=== PATIENT | female | born 1985 | race Caucasian/White ===

== ENCOUNTER 2022-09-27 14:56 | Inpatient (IN) ==
[2022-09-27] MEDS ORDERED: TRANEXAMIC ACID 1,000 MG in SODIUM CHLORIDE 0.9% 100 ML IV PRN (15:10)
[2022-09-27] MEDS ORDERED: miSOPROStoL 200 MCG TABLET RECTAL PRN (15:10)
[2022-09-27] MEDS ORDERED: LIDOCAINE 1% 50 ML VIAL MISC INJ ONE (15:10)
[2022-09-27] MEDS ORDERED: miSOPROStoL 200 MCG TABLET VAG PRN (15:10)
[2022-09-27] MEDS ORDERED: ONDANSETRON 4 MG/2 ML VIAL IV PRN (15:10)
[2022-09-27] MEDS ORDERED: MEPERIDINE 50 MG/1 ML VIAL IV PRN (15:10)
[2022-09-27] MEDS ORDERED: OXYTOCIN/LR 20 UNIT/1,000 ML BAG IV ONE (15:10)
[2022-09-27] MEDS ORDERED: TERBUTALINE 1 MG/1 ML VIAL SUBCUT PRN (15:10)
[2022-09-27] MEDS ORDERED: CARBOPROST TROMETHAMINE 250 MCG/ML AMP IM PRN ×2 (15:10)
[2022-09-27] MEDS ORDERED: METHYLERGONOVINE 0.2 MG/1 ML AMP IM PRN (15:10)
[2022-09-27] MEDS ORDERED: LACTATED RINGERS 1,000 ML IV SCH (15:30)
[2022-09-27 15:32] LABS: Basophils % 0.3 % (0.0-0.8); Eosinophils # 0.1 10*3/uL (0.0-0.87); Eosinophils % 0.7 % (0.00-10.9); Hematocrit 37.6 VOL% (35.7-47.0); Hemoglobin 12.4 GM/DL (12.0-16.0); Immature Granulocytes % 0.4 %; Immature Granulocytes Absolute 0.04 #; Lymphocytes # 1.6 10*3/uL (1.4-4.0); Lymphocytes % 16.5 % (21.3-54.2); Mean Corpuscular Volume 85.5 FL (87-102); Mean Platelet Volume 10.8 FL (9.6-12.0); Monocytes # 0.6 10*3/uL (0.11-0.8); Monocytes % 6.3 % (1.7-12.7); Neutrophils % 75.8 % (38.7-73.9); Platelet Count 234 T/CUMM (130-400); White Blood Count 9.39 T/CUMM (4-12)
[2022-09-27 15:51] LABS: Albumin 3.2 G/DL (3.4-5.0); Bilirubin,Total 0.5 MG/DL (0.20-1.00); Calcium 9.2 MG/DL (8.5-10.1); Total Protein 6.8 G/DL (6.4-8.2)
[2022-09-28] MEDS ORDERED: BUTORPHANOL 2 MG/ML VIAL IV PRN (01:52)
[2022-09-28] MEDS ORDERED: OXYTOCIN/LR 20 UNIT/1,000 ML BAG IV ONE ×2 (02:23→03:05)
[2022-09-28] MEDS ORDERED: OXYTOCIN/LR 20 UNIT/1,000 ML BAG IV SCH ×2 (02:30→04:00)
[2022-09-28] MEDS ORDERED: HYDROCORTISONE 2.5% RECTAL CREAM 30 GM TUBE TOP PRN (03:05)
[2022-09-28] MEDS ORDERED: ONDANSETRON 4 MG/2 ML VIAL IV PRN (03:05)
[2022-09-28] MEDS ORDERED: BENZOCAINE 20%/MENTHOL 0.5% SPRAY 56 GM CAN TOP PRN (03:05)
[2022-09-28] MEDS ORDERED: BISACODYL 10 MG SUPP RECTAL PRN (03:05)
[2022-09-28] MEDS ORDERED: MEASLES/MUMPS/RUBELLA VACCINE 0.5 ML VIAL SUBCUT ONE (03:05)
[2022-09-28] MEDS ORDERED: ACETAMINOPHEN 325 MG TABLET PO PRN (03:05)
[2022-09-28] MEDS ORDERED: WITCH HAZEL PADS 100/JAR TOP PRN (03:05)
[2022-09-28] MEDS ORDERED: DIPH/TET/ACEL PERT BOOSTER VACCINE 0.5 ML VIAL IM ONE (03:05)
[2022-09-28] MEDS ORDERED: LANOLIN 50% CREAM 0.3 OZ TUBE TOP PRN (03:05)
[2022-09-28] MEDS ORDERED: oxyCODONE/ACETAMINOPHEN 5-325 MG TABLET PO PRN (03:05)
[2022-09-28] MEDS ORDERED: RHO(D) IMMUNE GLOBULIN 300 MCG SYRINGE IM ONE (03:05)
[2022-09-28 03:07] LABS: Cord Venous Blood PCO2 30.8 MMHG; Cord Venous Blood PO2 22.2
[2022-09-28] MEDS: IBUPROFEN 800 MG TABLET PO PRN ×2 (03:13→17:33)
[2022-09-28 05:18] LABS: Basophils % 0.2 % (0.0-0.8); Eosinophils # 0.1 10*3/uL (0.0-0.87); Eosinophils % 0.5 % (0.00-10.9); Hematocrit 35.6 VOL% (35.7-47.0); Hemoglobin 11.9 GM/DL (12.0-16.0); Immature Granulocytes % 0.3 %; Immature Granulocytes Absolute 0.04 #; Lymphocytes % 8.4 % (21.3-54.2); Mean Corpuscular HGB Conc 33.4 GM/DL (32-36); Mean Corpuscular Volume 85.8 FL (87-102); Mean Platelet Volume 11.1 FL (9.6-12.0); Monocytes # 0.7 10*3/uL (0.11-0.8); Monocytes % 5.4 % (1.7-12.7); Neutrophils % 85.2 % (38.7-73.9); Platelet Count 199 T/CUMM (130-400); Red Blood Count 4.15 MC/CUMM (3.8-5.5); White Blood Count 12.31 T/CUMM (4-12)
[2022-09-28] MEDS: oxyCODONE/ACETAMINOPHEN 5-325 MG TABLET PO PRN (08:22)
[2022-09-28] MEDS: DOCUSATE SODIUM 100 MG CAPSULE PO SCH ×2 (08:22→20:14)
[2022-09-29] MEDS: IBUPROFEN 800 MG TABLET PO PRN (06:51)
[2022-09-29] MEDS: DOCUSATE SODIUM 100 MG CAPSULE PO SCH (08:09)
[2022-09-29 12:10] VITALS: BP 93/58
[2022-09-29] MEDS: oxyCODONE/ACETAMINOPHEN 5-325 MG TABLET PO PRN (12:59)
== END 2022-09-29 15:50 | disposition home or self-care (01) | DRG 807 ==
LOC: N.LDOUT 14:56 → N.LD 15:00 → N.OB 09-28 08:08
PROVIDERS: ADMIT Specialist; ATTEND Specialist